=== PATIENT | female | born 1970 | race Caucasian/White ===

== ENCOUNTER 2018-03-29 11:43 | Inpatient (IN) | payer OTHER ==
[~2018-03-29] VITALS: Ht 160 cm; Wt 78.5 kg
[~2018-03-29 11:43] MED LIST: FEXOFENADINE H180 MG; SUPPORT-5001 CAP; TERCONAZOLE; TRILIPIX
[2018-04-20] MEDS ORDERED: CLONAZEPAM2 MG PO (12:31)
[2018-04-20] MEDS ORDERED: WELLBUTRIN XL300 MG PO (12:31)
[2018-04-20] MEDS ORDERED: LIPITOR PO (12:32)
[2018-04-20] MEDS ORDERED: SYNTHROID88 MCG PO (12:32)
[2018-04-20] MEDS ORDERED: LAMICTAL200 M1 PO (12:32)
[2018-04-20] MEDS ORDERED: METFORMIN HCL500 MG PO (12:33)
[2018-04-27] MEDS ORDERED: DOCUSATE SODIU100 MG PO (09:25)
[2018-04-27] MEDS ORDERED: GABAPENTIN800 MG PO (09:25)
[2018-04-27] MEDS ORDERED: CLONAZEPAM1 MG PO (09:27)
[2018-04-27] MEDS ORDERED: CIPROFLOXACIN750 MG PO (09:27)
[2018-04-27] MEDS ORDERED: PERCOCET 5-3251 EACH PO (09:27)
== END 2018-04-27 15:06 | DRG 454 ==
LOC: PED 04-26 05:55 → O/R 04-26 05:55 → SURH 04-26 10:15 → PED 04-26 15:47
PROVIDERS: Orthopaedic Surgery Orthopaedic Surgery of the Spine
PROC: 0SG0071 Fusion of Lumbar Vertebral Joint with Autologous Tissue Substitute, Posterior Approach, Posterior Column, Open Approach (ICD-10-PCS; 2018-04-26)
PROC: 0ST20ZZ Resection of Lumbar Vertebral Disc, Open Approach (ICD-10-PCS; 2018-04-26)
PROC: 0SG00AJ Fusion of Lumbar Vertebral Joint with Interbody Fusion Device, Posterior Approach, Anterior Column, Open Approach (ICD-10-PCS; 2018-04-26)
PROC: 07DS3ZZ Extraction of Vertebral Bone Marrow, Percutaneous Approach (ICD-10-PCS; 2018-04-26)
PROC: 0SG00A0 Fusion of Lumbar Vertebral Joint with Interbody Fusion Device, Anterior Approach, Anterior Column, Open Approach (ICD-10-PCS; principal; 2018-04-26 10:15)
DX: M48.061 Spinal stenosis, lumbar region without neurogenic claudication (principal); M51.06 Intervertebral disc disorders with myelopathy, lumbar region; M43.16 Spondylolisthesis, lumbar region; E11.9 Type 2 diabetes mellitus without complications; E03.8 Other specified hypothyroidism